=== PATIENT | female | born 1965 ===

== ENCOUNTER 2025-01-19 09:00 | Day surgery (SDC) | payer OTHER ==
[2025-01-14 10:38] LABS: BASO % 1.2 % (0.1-1.2); EOS # 0.58 (0.04-0.54); EOS % 7.7 % (0.7-7.0); LYMPH # 2.61 (1.18-3.74); LYMPH % 34.6 % (19.3-53.1); MEAN PLATELET VOLUME 10.10 fl (9.4-12.4); MONO # 0.41 (0.24-0.82); MONO % 5.4 % (4.7-12.5); NEUT # 3.83 (1.56-6.13); NEUT % 50.8 % (34.0-71.1); RED CELL DISTRIBUTION WIDTH 12.6 % (11.6-14.4)
[2025-01-14 11:22] LABS: ALT/SGPT 26.0 U/L (12-78); AST/SGOT 17.0 U/L (15-37); BILIRUBIN TOTAL 0.3 mg/dL (0.3-1.2); BUN CREA RATIO 22.0 (7.0-25.0); CREATININE SERUM 0.5 mg/dL (0.55-1.02); GFR 127.17; GLOBULINA 4.3 G/DL (2.4-3.5); GLUCOSE FASTING 120.0 mg/dL (65-100); OSMOLALITY SERUM 286.0 MOSM/KG (275-295)
[2025-01-14 11:25] LABS: INR 1.0
[2025-01-14 11:30] LABS: URINE APPEARANCE Clear; URINE BILIRRUBIN Negative (NEGATIVE); URINE BLOOD Negative; URINE COLOR Yellow; URINE GLUCOSE Negative (NEGATIVE); URINE KETONE Negative (NEGATIVE); URINE LEUKOCYTE Trace; URINE NITRATE Negative; URINE PROTEIN Negative (NEGATIVE); URINE UROBILINOGEN 0.2 E.U./dl
[2025-01-14 11:35] LABS: URINE BACTERIA 23.9 uL (0.0-1933); URINE EPITHELIAL CELLS 4.5 uL (0.0-38.8); URINE RBC 2.4 uL (0.0-20.8); URINE WBC 3.5 uL (0.0-23.2)
[2025-01-14 12:20] LABS: URINE CAST 0.14 uL (0.0-1.40)
[2025-01-14 14:24] VITALS: BP 131/84
[~2025-01-19] VITALS: Ht 160 cm; Wt 73.9 kg
[~2025-01-19 09:00] MED LIST: METFORMIN HCL500 MG; TOPROL XL25 M1
[2025-01-19] MEDS ORDERED: CLINDAMYCIN PHOSPHATE 150 MG/ML (900mg) ONE (12:08)
[2025-01-19] MEDS ORDERED: BUPIVACAINE HCL/MPF 0.5% 30ML VIAL ONE (14:05)
[2025-01-19] MEDS ORDERED: ISOPROPYL ALCOHOL 30 ML OUNCE TOP ONE (16:00)
[2025-01-19] MEDS ORDERED: CLINDAMYCIN PHOSPHATE 150 MG/ML (900mg) IV ONE (16:00)
== END 2025-01-19 19:10 | disposition home or self-care (01) ==
LOC: CIR.AMB 09:00
PROVIDERS: ATTEND Orthopaedic Surgery Hand Surgery
DX: M19.041 Primary osteoarthritis, right hand (principal); Z88.0 Allergy status to penicillin
CPT/HCPCS: 26536; C1776